=== PATIENT | female | born 1940 | race Caucasian/White ===

== ENCOUNTER 2019-05-23 08:30 | Emergency (ER) | payer MEDICARE, OTHER, SELFPAY ==
[2019-05-23 08:43] VITALS: PULSE 64; RESP 18; O2SAT 95; BMI 24.9
--- NOTE | 2019-05-23 08:50 | CTR_ITS ---
PROCEDURE INFORMATION: Exam: CT Cervical Spine Without Contrast Exam date and time: 05/23/2019 9:24 AM Age: 78 years old Clinical indication: Neck pain TECHNIQUE: Imaging protocol: Computed tomography images of the cervical spine without contrast. Total DLP: 461.14 mGy-cm Radiation optimization: All CT scans at this facility use at least one of these dose optimization techniques: automated exposure control; mA and/or kV adjustment per patient size (includes targeted exams where dose is matched to clinical indication); or iterative reconstruction. COMPARISON: CR Cervical Spine AP/Lat* [id number] 12/29/2016 10:29 AM FINDINGS: Vertebrae: No acute fracture. Normal alignment. Discs/Spinal canal/Neural foramina: There are multilevel degenerative changes including disc space narrowing, uncovertebral joint arthropathy, and hypertrophic spur formation. Soft tissues: Unremarkable. Lungs: Lung apices are normal. CT/CT cervical spin wo con* [id number] IMPRESSION: No acute findings are identified. Please see above report for incidental findings. Radiation Dose CTDIVOL = (mGy): DLP = 461.14 (mGy-cm)
--- NOTE | 2019-05-23 08:57 | ED_ITS ---
HPI - Neck Pain/Injury General: Chief Complaint: Headache Stated Complaint: head/neck pain Time Seen by Provider: 05/23/19 08:50 Review of Systems General: Reports: 10 or more systems reviewed and unremarkable except in HPI and below PFSH ED PFSH: Medical History COPD (chronic obstructive pulmonary disease) Hypertension Hypothyroidism Vitamin D deficiency Surgical History History of cholecystectomy History of hysterectomy Family History Daughter Lupus Social History Smoking and tobacco status: never smoked Alcohol intake: never Marital status: Physical Exam Narrative: EXAM NARRATIVE: Well kempt Const: COMMON NORMALS: no apparent distress, average body habitus, oriented x3, no limitations, alert and well nourished GENERAL APPEARANCE: cooperative and comfortable ORIENTATION/CONSCIOUSNESS: Yes awake, Yes oriented to person, Yes oriented to place and Yes oriented to time HENMT: COMMON NORMALS: normocephalic, external ears normal, EAC's normal, TM's normal bilaterally and external nose normal HEAD & SCALP: normocephalic FACE & SINUS: normal facial exam, sinus tenderness frontal and facial tenderness NOSE: external nose normal EXTERNAL EAR: Yes external ears normal EXTERNAL AUDITORY CANAL: EAC's normal TYMPANIC MEMBRANE: TM's normal bilaterally MOUTH: oral and palatal mucosa normal THROAT: posterior oropharynx normal, tonsils normal and uvula midline Eye: COMMON NORMALS: PERRL, EOMs intact bilaterally, conjunctivae normal, no scleral icterus, no papilledema and normal visual lyons by confrontation GENERAL EYE: normal appearance of both eyes and normal light reflex EYELID: eyelids normal CONJUNCTIVA: Yes conjunctivae normal PUPIL: Yes PERRL EOM: Yes EOM abnormal DIRECT OPHTHALMOSCOPY: Yes normal light reflex and Yes no papilledema Neck/C-Spine: COMMON NORMALS: full ROM, no meningeal signs, no JVD and thyroid normal GENERAL: Yes normal visual inspection THYROID: thyroid normal CERVICAL SPINE: Yes cervical ROM normal Lymph: LYMPHATIC: no lymphadenopathy noted Chest: COMMONS NORMALS: inspection of chest normal and palpation of chest normal Resp: COMMON NORMALS: normal respiratory effort, no retractions, no use of accessory muscles and clear to auscultation bilaterally AUSCULTATION: clear to auscultation bilaterally Cardio: COMMON NORMALS: no JVD, regular rate, regular rhythm, S1 normal heart sound, S2 normal heart sound, no gallops, no clicks, no murmurs, no rub and peripheral pulses 2+ throughout RATE: regular rate RHYTHM: regular rhythm HEART SOUNDS: S1 normal and S2 normal PERIPHERAL PULSES: pulses 2+ throughout GI: COMMON NORMALS: normal to inspection, nondistended, normoactive bowel sounds and soft to palpation PALPATION: Yes soft : COMMON NORMALS: Yes no CVA tenderness and Yes external appearance normal BLADDER/KIDNEY EXAM: Yes no CVA tenderness Back/Pelvis: COMMON NORMALS: no CVA tenderness, thoracic and lumbar spine normal to inspection, no thoracic nor lumbar tenderness and thoraco-lumbar ROM normal Extremity: COMMON NORMALS: normal to inspection, full ROM, normal capillary refill, no joint enlargement, no clubbing, cyanosis or edema, no calf tenderness and no pedal edema GENERAL: Yes normal exam except as noted Neuro: COMMON NORMALS: oriented x3 SENSORIUM/ORIENTATION: Yes alert, Yes oriented to person, Yes oriented to place and Yes oriented to time MENINGEAL SIGNS: Yes no meningeal signs Psych: COMMON NORMALS: mental status grossly normal, thought process normal, cooperative, affect normal, speech normal and activity/motor behavior normal SPEECH: Yes normal speech THOUGHT PROCESS: normal thought process Skin: COMMON NORMALS: no rashes or lesions noted, no wounds and skin turgor normal GENERAL SKIN EXAM: no rashes or lesions noted and turgor normal Course ED course: Pt assessed and orders placed. Reevaluation(s): Reevaluation #1: Awaiting ct head and cspine Time: 09:48 Time: 10:46 Reevaluation #3: Discussed CT findings and addressed possible POC. PCP for follow up on cervical arthritis. Vital Signs: Vital signs: Vital Signs Pulse Rate 56 L 05/23/19 10:34 Respiratory Rate 17 05/23/19 10:34 Blood Pressure 167/64 05/23/19 10:34 Pulse Oximetry 95 05/23/19 10:34 MDM - Neck Pain/Injury Imaging Data^: CT Head: Radiologist's impression: CT/CT head wo con* [id number] IMPRESSION: No acute intracranial findings identified. Please refer to incidental findings in body of report FINDINGS: Brain: There are chronic lacunar infarcts. Ventricles: Normal. No ventriculomegaly. Bones/joints: Unremarkable. No acute fracture. Sinuses: There is mild sinus disease. 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 Mastoid air cells: Visualized mastoid air cells are well aerated. Soft tissues: Unremarkable. Vasculature: There is moderate intracranial vascular calcification. FINDINGS: Vertebrae: No acute fracture. Normal alignment. Discs/Spinal canal/Neural foramina: There are multilevel degenerative changes including disc space narrowing, uncovertebral joint arthropathy, and hypertrophic spur formation. Soft tissues: Unremarkable. Lungs: Lung apices are normal. CT/CT cervical spin wo con* [id number] IMPRESSION: No acute findings are identified. Please see above report for incidental findings. Discharge Plan Discharge Patient Disposition: Home, Self-Care Clinical Impression: Cervical arthritis, Tension headache Condition: Stable Prescriptions: No Action betamethasone acet,sod phos [Celestone Soluspan] 6 mg/mL suspension 6 mg IM ONCE Qty: 1 RF: 0 dexamethasone sodium phosphate 4 mg/mL solution 4 mg IM ONCE Qty: 1 RF: 0 fluticasone propion-salmeterol [Advair Diskus] 250-50 mcg/dose blister with device 1 inh INHALATION Q12H RF: 0 losartan 50 mg tablet 50 mg PO BID RF: 0 levothyroxine 88 mcg tablet 88 mcg PO DAILY RF: 0 albuterol sulfate [ProAir HFA] 90 mcg/actuation HFA aerosol inhaler 2 puff INHALATION QID RF: 0 potassium gluconate 595 mg (99 mg) tablet 595 mg PO DAILY RF: 0 cholecalciferol (vitamin D3) 4,000 unit capsule 4,000 unit PO .1ST AND 15TH RF: 0 tizanidine 4 mg capsule 4 mg PO TID PRN (Reason: muscle spasticity) Qty: 60 RF: 0 Referrals: Yu Mcnulty, CANDY CUTTER MACHINE-C [Primary Care Provider] - Discharge Diet: Usual diet Discharge Activity: Increase activity as tolerated Activity Restrictions/Additional Instructions: Follow up with PCP; referral to Dr. Castillo or pain management may be necessary at this time. Coding Level of Care Code ED Tank Wagon Operator for Chg Fwd Exam Comprehensive
[2019-05-23] MEDS: ketorolac 30 mg/mL INJ IM (09:07)
[2019-05-23] MEDS: orphenadrine 30 mg/mL Inj 2 mL 60 MG IM (09:07)
[2019-05-23 09:11] VITALS: BP 182/80; PULSE 60; RESP 17; O2SAT 96
--- NOTE | 2019-05-23 09:14 | CTR_ITS ---
PROCEDURE INFORMATION: Exam: CT Head Without Contrast Exam date and time: 05/23/2019 9:27 AM Age: 78 years old Clinical indication: Pain; Headache TECHNIQUE: Imaging protocol: Computed tomography of the head without contrast. Total DLP: 824.23 mGy-cm Radiation optimization: All CT scans at this facility use at least one of these dose optimization techniques: automated exposure control; mA and/or kV adjustment per patient size (includes targeted exams where dose is matched to clinical indication); or iterative reconstruction. COMPARISON: CT head wo con* [id number] 12/29/2016 10:27 AM FINDINGS: Brain: There are chronic lacunar infarcts. Ventricles: Normal. No ventriculomegaly. Bones/joints: Unremarkable. No acute fracture. Sinuses: There is mild sinus disease. 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 Mastoid air cells: Visualized mastoid air cells are well aerated. Soft tissues: Unremarkable. Vasculature: There is moderate intracranial vascular calcification. CT/CT head wo con* [id number] IMPRESSION: No acute intracranial findings identified. Please refer to incidental findings in body of report. Radiation Dose CTDIVOL = (mGy): DLP = 824.23 (mGy-cm)
--- NOTE | 2019-05-23 09:23 | PC.NURSE ---
Pt to CT
--- NOTE | 2019-05-23 09:37 | PC.NURSE ---
Pt back from CT
[2019-05-23 09:38] VITALS: BP 175/83; PULSE 56; RESP 18; O2SAT 95
[2019-05-23 10:34] VITALS: BP 167/64; PULSE 56; RESP 17; O2SAT 95
[2019-05-23 11:00] VITALS: BP 163/82; PULSE 55; RESP 18; O2SAT 95
== END 2019-05-23 11:00 | disposition home or self-care (01) ==
PROVIDERS: Emergency Provider Nurse Practitioner Family; Family Provider Nurse Practitioner; PCP Nurse Practitioner
DX: G44.209 Tension-type headache, unspecified, not intractable (principal); M47.812 Spondylosis without myelopathy or radiculopathy, cervical region; J44.9 Chronic obstructive pulmonary disease, unspecified; I10 Essential (primary) hypertension; E03.9 Hypothyroidism, unspecified
CPT/HCPCS: 70450; 72125; 96372; 99281; 99283; J1885; J2360

== ENCOUNTER 2019-06-30 01:11 | Observation (INO) | payer MEDICARE, OTHER, SELFPAY ==
[2019-06-30] VITALS (13 sets, daily range): BP systolic 110–159; BP diastolic 48–96; PULSE 16–113; RESP 16–60; TEMP 36.7–37.3; O2SAT 93–97; BMI 25.2
--- NOTE | 2019-06-30 01:19 | XR_ITS ---
WS: [id number] CHEST XRAY TECHNIQUE: Portable chest. CLINICAL INFORMATION: cp COMPARISON: June 12, 2018 FINDINGS: Heart: Normal cardiac silhouette. Lungs: Chronic emphysematous changes. No acute pulmonary infiltrates. Calcific granuloma left lower l obe. Bones: Normal visualized bony structures. XR/XR chest 1V portable [id number] IMPRESSION: No acute chest findings
--- NOTE | 2019-06-30 01:22 | W.ED.CHESTPA ---
HPI - Chest Pain General: Chief Complaint: Chest Pain Stated Complaint: high bp Time Seen by Provider: 06/30/19 01:13 Source: patient Mode of arrival: ambulatory Limitations: no limitations History of Present Illness: HPI narrative: Patient is a 78-year-old female who has a history of high blood pressure states she started having high blood pressure yesterday. She saw her PCP for this and was given clonidine and improved. She states she has had chest pain with her high blood pressure. She states her blood pressure increased to 190s again tonight and started having pain in her chest that is mild in nature. States pain is 1 out of 10. She has had a slight headache as well. Denies any worsening or improving factors. complaint: chest pain Onset (ago): day(s) Timing of current episode: episodic Onset: during rest Pain location: lateral Pain radiation: none Severity: mild Relieving factors: nothing Exacerbating factors: nothing Associated symptoms: Deny abdominal pain, dyspnea, fever(s), nausea or vomiting Review of Systems Const: Denies: fever, chills, body aches or change in appetite Eyes: Denies: blurry vision or eye discomfort ENMT: Denies: throat pain or dental pain Card: Reports: chest pain Resp: Denies: shortness of breath GI: Denies: abdominal pain, nausea, vomiting or diarrhea : Denies: painful urination Musc: Denies: neck pain or back pain Skin/Breast: Denies: rash Neuro: Denies: headache Psych: Denies: depression Mark/Lymph: Denies: easy bruising All/Imm: Denies: hives PFSH ED PFSH: Medical History COPD (chronic obstructive pulmonary disease) Hypertension Hypothyroidism Vitamin D deficiency Surgical History History of cholecystectomy History of hysterectomy Family History Daughter Lupus Social History Smoking and tobacco status: never smoked Second hand smoke exposure: No Alcohol intake: never Lives independently: Yes Household members: spouse Marital status: Current occupational status: employed Current occupation: [employer] History of recent travel: No Current gender identity: Female Physical Exam Const: COMMON NORMALS: no apparent distress, oriented x3 and healthy appearing HENMT: COMMON NORMALS: normocephalic and head/scalp atraumatic HEAD & SCALP: normocephalic and atraumatic Eye: COMMON NORMALS: PERRL and EOMs intact bilaterally PUPIL: Yes PERRL Neck/C-Spine: COMMON NORMALS: full ROM and supple Chest: COMMONS NORMALS: inspection of chest normal and palpation of chest normal Resp: COMMON NORMALS: normal respiratory effort, no retractions, no use of accessory muscles and clear to auscultation bilaterally AUSCULTATION: clear to auscultation bilaterally Cardio: COMMON NORMALS: regular rate, regular rhythm and no murmurs RATE: regular rate RHYTHM: regular rhythm GI: COMMON NORMALS: normal to inspection, nondistended, normoactive bowel sounds, soft to palpation, non-tender and no masses PALPATION: Yes soft Extremity: COMMON NORMALS: normal to inspection and full ROM Neuro: COMMON NORMALS: oriented x3, moves all extremities and no focal motor deficits Psych: COMMON NORMALS: mental status grossly normal, thought process normal and cooperative THOUGHT PROCESS: normal thought process Skin: COMMON NORMALS: no rashes or lesions noted and no wounds GENERAL SKIN EXAM: no rashes or lesions noted Course Vital Signs: Vital signs: Vital Signs Temperature 98.4 F 06/30/19 01:16 Pulse Rate 113 H 06/30/19 01:16 Respiratory Rate 22 H 06/30/19 01:16 Blood Pressure 159/96 06/30/19 01:16 Pulse Oximetry 94 06/30/19 01:16 MDM - Chest Pain MDM Narrative: Medical decision making narrative: Patient presents here with new onset A. fib. Patient also has high blood pressure and some chest pain. She has no signs of coronary cause for her pain. Patient's heart rates improved here after Cardizem. I spoke to hospitalist will admit for atrial fibrillation. Lab Data: Labs: Lab Results 06/30/19 06/30/19 06/30/19 Range/Units 01:24 01:24 01:24 WBC 5.1 (4.0-10.0) 10^3/ uL RBC 4.46 (4.1-5.3) 10^6/u L Hgb 12.8 (11.5-15.3) g/dL Hct 39.8 (37.0-47.0) % MCV 89.2 (81-99) fL MCH 28.7 (28.0-34.0) pg MCHC 32.2 (30.0-36.0) g/dL RDW 12.8 (12.1-15.1) % Plt Count 206 (130-400) 10^3/c mm MPV 9.8 (7.4-10.4) fL Neut % (Auto) 54.3 % Lymph % (Auto) 34.3 % [place] % (Auto) 8.6 % Eos % (Auto) 2.2 % Baso % (Auto) 0.4 % Neut # (Auto) 2.8 (1.8-7.7) 10^3/u L Lymph # (Auto) 1.8 (0.8-4.8) 10^3/u L [place] # (Auto) 0.4 (0.2-0.9) 10^3/u L Eos # (Auto) 0.1 (0.0-0.8) 10^3/u L Baso # (Auto) 0.0 (0.0-0.1) 10^3/u L Nucleated RBC % (a uto) 0 % Nucleated RBCs # 0.0 /100WBC Sodium 139 (136-145) mmol/L Potassium 4.0 (3.5-5.1) mmol/L Chloride 103 (98-107) mmol/L Carbon Dioxide 22 (22-29) mmol/L Anion Gap 18.0 (5-19) BUN 11 (8-23) mg/dL Creatinine 1.0 H (0.5-0.9) mg/dL Glucose 142 H (65-115) mg/dL Calculated Osmolal ity 286 (285-295) mOsm/k g Calcium 10.2 (8.5-10.5) mg/dL Total Bilirubin 0.4 (0.15-1.2) mg/dL AST 16 (0-32) U/L ALT 13 (0-33) U/L Alkaline Phosphata se 66 (35-105) IU/L Troponin T Baselin e 10 (0-10) ng/mL Total Protein 7.2 (6.6-8.7) g/dL Albumin 4.3 (3.5-5.2) g/dL Globulin 2.9 (1.3-4.6) g/dL EKG Data^: EKG 1: Attestation: I personally reviewed and interpreted this EKG as follows: EKG interpretation date: 06/30/19 EKG interpretation time: 01:58 Interpretation: afib rvr hr [address] or t wave abnormalities qrs 88 qtc 390 Discharge Plan Discharge Patient Disposition: Admitted As Inpatient Admit Provider: Melinda Marley Clinical Impression: Hypertension Qualifiers: Hypertension type: unspecified Qualified Code(s): I10 - Essential (primary) hypertension Atrial fibrillation Qualifiers: Atrial fibrillation type: unspecified Qualified Code(s): I48.91 - Unspecified atrial fibrillation Condition: Stable Referrals: Yu Mcnulty, IVF EMBRYOLOGIST-C [Primary Care Provider] - Coding Level of Care Code ED Record Press Supervisor for Chg Fwd Exam Comprehensive
--- NOTE | 2019-06-30 01:24 | CTR_ITS ---
PROCEDURE INFORMATION: Exam: CT Head Without Contrast Exam date and time: 06/30/2019 1:25 AM Age: 78 years old Clinical indication: Pain; Other: Elevated BP; Headache not specified; Additional info: SMALL TECHNIQUE: Imaging protocol: Computed tomography of the head without contrast. Total DLP: 820.98 mGy-cm Radiation optimization: All CT scans at this facility use at least one of these dose optimization techniques: automated exposure control; mA and/or kV adjustment per patient size (includes targeted exams where dose is matched to clinical indication); or iterative reconstruction. COMPARISON: CT head wo con* [id number] 2019-05-23 09:43 FINDINGS: Brain: Diffuse mild cerebral age related volume loss. Mild patchy low attenuation in the white matter compatible with mild chronic small vessel ischemic disease. No midline shift, mass, fluid collection, or evidence of hemorrhage. Ventricles: Ventricular enlargement proportional to volume loss. Bones/joints: Unremarkable. No acute fracture. Sinuses: Visualized sinuses are unremarkable. No fluid levels. Mastoid air cells: Visualized mastoid air cells are well aerated. Soft tissues: Unremarkable. CT/CT head wo con* [id number] IMPRESSION: Mild involutional changes, no acute intracranial abnormality. Radiation Dose CTDIVOL = (mGy): DLP = 820.98 (mGy-cm)
[2019-06-30 01:31] LABS: Basophils % 0.4 %; Eosinophils # 0.1 10^3/uL (0.0-0.8); Eosinophils % 2.2 %; Hematocrit 39.8 % (37.0-47.0); Hemoglobin 12.8 g/dL (11.5-15.3); Lymphocytes # 1.8 10^3/uL (0.8-4.8); Lymphocytes % 34.3 %; Mean Corpuscular HGB Conc 32.2 g/dL (30.0-36.0); Mean Corpuscular Hemoglobin 28.7 pg (28.0-34.0); Mean Corpuscular Volume 89.2 fL (81-99); Mean Platelet Volume 9.8 fL (7.4-10.4); Monocytes # 0.4 10^3/uL (0.2-0.9); Monocytes % 8.6 %; Neutrophils # 2.8 10^3/uL (1.8-7.7); Neutrophils % 54.3 %; Nucleated Red Blood Cells % 0 %; Platelet Count 206 10^3/cmm (130-400); Red Blood Count 4.46 10^6/uL (4.1-5.3); Red Cell Distribution Width 12.8 % (12.1-15.1); White Blood Count 5.1 10^3/uL (4.0-10.0)
[2019-06-30 01:47] LABS: Alanine Aminotransferase 13 U/L (0-33); Albumin Level 4.3 g/dL (3.5-5.2); Alkaline Phosphatase 66 IU/L (35-105); Aspartate Amino Transferase 16 U/L (0-32); Blood Urea Nitrogen 11 mg/dL (8-23); Calcium 10.2 mg/dL (8.5-10.5); Carbon Dioxide 22 mmol/L (22-29); Chloride 103 mmol/L (98-107); Globulin 2.9 g/dL (1.3-4.6); Glucose 142 mg/dL (65-115); Osmolality Calculated 286 mOsm/kg (285-295); Sodium 139 mmol/L (136-145); Total Bilirubin 0.4 mg/dL (0.15-1.2); Total Protein 7.2 g/dL (6.6-8.7); Troponin(5th) Baseline 10 ng/mL (0-10)
--- NOTE | 2019-06-30 02:18 | P.HP_ITS ---
Providers/Chief Complaint Primary Care Provider: Yu Mcnulty, RYLIE-C Chief Complaint: high bp History of Present Illness Anitha Marie is a 78 year old female who carries diagnoses of asthma, hypothyroidism, hypertension came in with chief complaint of palpitations. Patient is stating that for last couple of months she has been having palpitations mostly when she lays flat in bed at night, she has seen Dr. Case for the similar complaint who prescribed her atenolol in the past. Today she woke up and started experiencing some discomfort in her chest, she was feeling tired and lethargic, she checked her blood pressure it was 195mmhg at home she went to [facility], she was given clonidine that brought her pressure down to 120, she went home and then around evening she started experiencing chest heaviness, palpitations, palpitations were consistent, this time hyper pressure was 175, mild chest discomfort 1/10, she did not experience shortness of breath, nausea or vomiting. No recent sick contacts or traveling. She lives with her and daughter. Non-smoker, nonalcoholic. She drinks 1 to 2 cups of coff ee in the morning. Few weeks ago she fell in her backyard while taking steps, she has been seeing a chiropractor for neck pain, she was given tizanidine and Celebrex. She has not experienced any back pain but reports numbness of right thigh area. No previous history of stroke, [place], coronary disease or diabetes. Diagnostics in ER revealed hypertension 160/60, heart rate 113, A. fib RVR, saturating well on room air After getting Cardizem bolus 50 mg IV heart rate came down to 60s and blood pres sure 110/70, she was asymptomatic by the time I evaluated her Review of Systems Const: Denies: fever or chills Eyes: Denies: change in vision ENMT: Denies: throat pain Card: Reports: chest pain, palpitations and irregular heart rhythm; Denies: edema, swelling of feet/ankles, syncope, pre-syncope, shortness of breath on exertion or shortness of breath when lying down Resp: Denies: shortness of breath GI: Denies: abdominal pain, nausea, vomiting or coffee grounds in vomit : Denies: flank pain, difficulty urinating or urinary frequency Musc: Reports: neck pain; Denies: back pain Skin/Breast: Denies: rash or itching Neuro: Denies: headache Psych: Denies: anxiety Endo: Denies: excessive urination Mark/Lymph: Denies: easy bruising All/Imm: Denies: hives Medications/Allergies Allergies Allergy/AdvReac Type Severity Reaction Status Date / Time Sulfa (Sulfonamide Allergy UNK Verified 06/29/19 10:52 Antibiotics) PFSH Acute PFSH: Medical History (Updated 06/30/19 @ 03:04 by Melinda Marley MD) Arthritis Asthma Hypertension Hypothyroidism Vitamin D deficiency Surgical History History of cholecystectomy History of hysterectomy Family History (Updated 06/30/19 @ 03:04 by Melinda Marley MD) Daughter Lupus Mother Bleeding disorder Mother at age 43 because of intracranial bleed Social History Smoking and tobacco status: never smoked Second hand smoke exposure: No Alcohol intake: never Lives independently: Yes Household members: spouse Marital status: Current occupational status: employed Current occupation: [employer] History of recent travel: No Current gender identity: Female Vitals/I&O/Wt Last Vital Signs Temp 98.4 F 06/30/19 01:16 Pulse 113 H 06/30/19 01:16 Resp 22 H 06/30/19 01:16 BP 159/96 06/30/19 01:16 Pulse Ox 94 06/30/19 01:16 Weight last 48 hrs Weight 66.678 kg Physical Exam Narrative: EXAM NARRATIVE: Very pleasant female sitting comfortably in her bed Heart rate 60, Systolic blood pressure 120 S1, S2 variable, telemetry showing A. fib no active signs of heart failure Lungs clear to auscultation Abdomen soft, nontender, nondistended bowels are present Neurologically nonfocal exam Good motor strength of upper and lower extremities, no facial asymmetry, cranial nerves II to XII intact, reflexes equivocal Appropriate mood and affect EOMI, PERRLA No sign of ischemia gangrene or ulcer Data : 06/30/19 01:24 06/30/19 01:24 A&P Assessment and plan (1) Hypothyroidism: Status: Acute (2) Atrial fibrillation: Status: Acute Qualifiers: Atrial fibrillation type: unspecified Qualified Code(s): I48.91 - Unspecified atrial fibrillation (3) Muscle spasm: Status: Acute (4) Hypertension: Status: Acute Qualifiers: Hypertension type: unspecified Qualified Code(s): I10 - Essential (primary) hypertension (5) Neck pain: Status: Acute Additional A&P Information New onset A. fib Florian Vascor is 4 Has bled score 2 Check TSH, she takes levothyroxine for hypothyroidism No active chest pain, no history of coronary artery disease Eliquis 5 mg twice a day, metoprolol AV aiyana blocking agent 25 mg twice a day Echo in the morning Hypertensive urgency She has been only taking losartan for her hypertension although it has stayed about 170 for at least 1 to 2 weeks, Currently her systolic blood pressure is 110 after getting Cardizem bolus She has received clonidine in the clinic today She might need 2-3 anti-hypertensive agents at the time of discharge including a diuretic Neck pain after a fall Her fall was mechanical No loss of consciousness CT head negative for any acute pathology, She has been feeling numbness of left thigh area without any weakness, no incontinence or respiratory distress CT spine did not show acute pathological findings done on 05/22 I would discontinue Celebrex and continue tizanidine Full code Cardiac diet DVT prophylaxis: Not indicated currently she is getting Eliquis Attestations Medical Necessity Statement*: Anticipating discharge in less than 48 hours, new onset A. fib RVR needs echo in the morning currently rate controlled Time Spent in Patient Care: 40 Coding Level of Care Code Acute Coal Pulverizer Operator for Chg Fwd Diagnoses Hypothyroidism E03.9 Atrial fibrillation I48.91 Atrial fibrillation type: unspecified Muscle spasm M62.838 Hypertension I10 Hypertension type: unspecified Neck pain M54.2
[2019-06-30 04:25] LABS: Troponin 5 2HR 11.18 ng/mL (0-10); Troponin 5 2HR Delta 1.18 ABS# (0-10)
[2019-06-30 04:30] LABS: Thyroid Stimulating Hormone 0.48 uIU/mL (0.27-4.20)
--- NOTE | 2019-06-30 07:00 | USCV_ITS ---
Anitha Marie Age: 78 Gender: F : 1940 Exam Date: 06/30/2019 06:19 Ordering Phys: Melinda Marley MD Technologist: Li Francisco [place]am [place] [facility] [place] Indication: NEW ONSET AFIB BP: 138 / 81 HR: 58 Rhythm: Sinus Technical Quality: Adequate MEASUREMENTS (Male / Female) Normal Values 2D ECHO LV Diastolic Diameter PLAX 3.9 cm 4.2 - 5.9 / 3.9 - 5.3 cm LV Systolic Diameter PLAX 2.2 cm LV Chamber Size 3.3 cm IVS Diastolic Thickness 1.2 cm 0.6 - 1.0 / 0.6 - 0.9 cm IVS Systolic Thickness 1.8 cm LVPW Diastolic Thickness 1.4 cm 0.6 - 1.0 / 0.6 - 0.9 cm LVPW Systolic Thickness 1.5 cm RV Chamber Size 2.5 cm LVOT Diameter 2.0 cm LV Ejection Fraction 2D Teich 74.0 % LV Ejection Fraction MOD 2C 32.8 % LV Ejection Fraction 2C AL 34.5 % LA Diameter 5.0 cm LA Width 3.1 cm LA Height 5.6 cm RA Width 3.2 cm RA Height 4.8 cm Aorta at Sinotubular Diameter 2.8 cm M-MODE LV Diastolic Diameter MM 5.0 cm 4.2 - 5.9 / 3.9 - 5.3 cm LV Systolic Diameter MM 2.9 cm LV Ejection Fraction MM Teich 74.2 % IVS Diastolic Thickness MM 1.1 cm 0.6 - 1.0 / 0.6 - 0.9 cm IVS Systolic Thickness MM 1.7 cm LVPW Diastolic Thickness MM 1.4 cm 0.6 - 1.0 / 0.6 - 0.9 cm LVPW Systolic Thickness MM 1.8 cm RV Diastolic Diameter MM 1.1 cm Aortic Annulus Diameter 2.9 cm LA Ao Ratio MM 1.7 MV E Point Septal Separation 0.6 cm DOPPLER AV Peak Velocity 149.0 cm/s LVOT Peak Velocity 101.0 cm/s AV Area Cont Eq vti 2.2 cm squared AV Area Cont Eq pk 2.1 cm squared MV Area PHT 3.9 cm squared Mitral E to A Ratio 1.6 MV E' Velocity 11.0 cm/s Mitral E to MV E' Ratio 7.7 Mitral E to LV E' Lateral Ratio 8.6 Mitral E to LV E' Septal Ratio 6.9 TR Peak Velocity 313.2 cm/s TR Peak Gradient 39.2 mmHg TR Mean Velocity 225.6 cm/s TR Mean Gradient 23.2 mmHg TR Velocity Time Integral 107.2 cm TV Peak E Velocity 70.0 cm/s Right Atrial Pressure 3.0 mmHg Pulmonary Artery Systolic Pressu 42.2 mmHg PV Peak Velocity 38.0 cm/s RV Acceleration Time 0.1 s RV Ejection Time 0.3 s RV AcT/ET 0.5 FINDINGS Left Ventricle Normal left ventricular cavity size. Normal left ventricular wall thickness. Normal left ventricular systolic function. No regional wall motion abnormalities. Grade I/IV diastolic dysfunction (abnormal relaxation filling pattern), normal to mildly elevated filling pressures. Left ventricular ejection fraction is estimated at 55 %. Right Ventricle Normal right ventricular size and systolic function. Mild pulmonary hypertension, RVSP 42.2 mmHg. Right Atrium The right atrium is normal in size. Left Atrium Mildly increased left atrial size. Mitral Valve Structurally normal mitral valve. Moderate mitral valve regurgitation. Aortic Valve Structurally normal aortic valve without significant sclerosis or stenosis. There is no aortic regurgitation. Tricuspid Valve Structurally normal tricuspid valve. [id number] tricuspid valve regurgitation. Pulmonic Valve Pulmonic valve not well visualized. Pericardium Normal pericardium without effusion. Aorta Normal ascending aorta dimension. CONCLUSIONS Normal left ventricular cavity size. Normal left ventricular wall thickness. Normal left ventricular systolic function. No regional wall motion abnormalities. Grade I/IV diastolic dysfunction (abnormal relaxation filling pattern), normal to mildly elevated filling pressures. Left ventricular ejection fraction is estimated at 55 %. Normal right ventricular size and systolic function. Mild pulmonary hypertension, RVSP 42.2 mmHg. Mildly increased left atrial size. Structurally normal mitral valve. Moderate mitral valve regurgitation. Dr. Francis Rogers MD (Electronically Signed) Final Date: 30 June 2019 13:01 S
--- NOTE | 2019-06-30 07:19 | ECG_ITS ---
Measurements Intervals Scott Rate: 77 P: SC: 0 QRS: 50 QRSD: 91 T: 73 QT: 356 QTc: 403 ATRIAL FIBRILLATION ABNORMAL RHYTHM ECG No previous ECG available for comparison Electronically Signed On 06-30-2019 18:10:47 CDT by Surjit Stone M.D. [email or web address]
[2019-06-30 07:53] LABS: Troponin 5 6HR 11.09 ng/mL (0-10); Troponin 5 6HR Delta 1.09 ng/L (0-12)
[2019-06-30] MEDS: levothyroxine 88 mcg Tablet PO (08:32)
[2019-06-30] MEDS: metoprolol tartrate 25 mg Tablet PO ×2 (08:32→17:41)
[2019-06-30] MEDS: losartan 50 mg Tablet PO ×2 (08:32→17:41)
[2019-06-30] MEDS: apixaban 5 mg Tablet PO ×2 (08:33→17:41)
--- NOTE | 2019-06-30 10:06 | PC.CHAP ---
Pastoral Care Encounter/Spiritual Assessment Type of Contact [] Declined tavern keeper visit [] Patient/Family/Request visit [] Outpatient visit [] Follow-up visit [] Physician referral [] Code/Alert [x] Routine visit [] Staff referral [] Actively dying [] Patient sleeping [] Family support [] [] Out of room [] Palliative care [] [] Receiving care in room [] Pre-surgical visit [] Trauma [] Long length of stay [] ICU visit [] Other: Relational/Emotional Strength [] Patient feels connected with others/family/visitors/staff [] Distress [] Loneliness/isolation [] Abandonment Spirituality of Patient [] Person of Jessa [] Attends Jainism of their Jessa [] Believes in Prayer [] Reads Bible or Rastafari materials [] There are Spiritual issues to be addressed Methodologist Interventions [x] Prayer [] Active listening [] Non-anxious presence [] Spiritual/emotional support [] Crisis/trauma care [] Spiritual counseling [] Bereavement support [] Provided bereavement packet [] Provided Bible/devotional materials [] Provided toy/stuffed animal, coloring book to patient or family member [] Provided Communion [] Anointing/[place] [] Salvation [x] Completed spiritual assessment [] Other: Impact on Illness or Injury [] Angry [] Fearful [] Anxious [] Often cries [] Exhaustion [] Unable to work [] Unable to attend restorationist [] Unable to walk/stand [] Unable to read [] Unable to drive [] Unable to eat/drink [] Unable to sleep [] Unable to be with family [] Patient intubated [] Other: Summary Patient resting Time spent with patient 5 min
--- NOTE | 2019-06-30 10:16 | P.PN_ITS ---
Subjective Subjective: Interval history: History and physical reviewed. Patient reports significant palpitations, and chest pressure, associated with her blood pressure being up. She reports shortness of breath as well. She denies any of this currently and feels much better. Medications: Reviewed: Yes Vitals/I&O/Wt Last Vital Signs Temp 98.6 F 06/30/19 08:00 Pulse 57 L 06/30/19 09:26 Resp 16 06/30/19 09:26 BP 147/72 06/30/19 08:32 Pulse Ox 96 06/30/19 09:26 06/29/19 06/30/19 06/30/19 22:59 06:59 14:59 Intake Total 0 / 0 120 / 120 Output Total 0 / 0 Balance 0 / 0 120 / 120 Weight last 48 hrs Weight 66.678 kg Physical Exam Narrative: EXAM NARRATIVE: General exam is no apparent distress Cardiovascular regular rate and rhythm without murmur Lungs clear abdomen is soft with positive bowel sounds Extremities no cyanosis clubbing or edema Data : 06/30/19 01:24 06/30/19 01:24 A&P Assessment and plan (1) Chest pain: Associated with palpitations, atrial fibrillation with rapid ventricular rate. Previously having some neck pain. Chest discomfort has resolved Await for nuclear stress test tomorrow Await echocardiogram Status: Acute (2) Atrial fibrillation: With rapid ventricular rate on admission Eliquis started Metoprolol initiated. Patient has converted to sinus rhythm Status: Acute Qualifiers: Atrial fibrillation type: unspecified Qualified Code(s): I48.91 - Unspecified atrial fibrillation (3) Hypertension: Markedly elevated blood pressure. Now improved Losartan increased Metoprolol 25 mg twice daily added last night for atrial fibrillation with rapid ventricular rate Status: Acute Qualifiers: Hypertension type: unspecified Qualified Code(s): I10 - Essential (primary) hypertension Additional A&P Information History of neck pain, on muscle relaxer as needed Hypothyroidism, TSH normal Past history of COPD Attestations Medical Necessity Statement*: Continue observation. Likely discharge tomorrow if nuclear stress test is negative. 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
--- NOTE | 2019-06-30 10:17 | ECG_ITS ---
NAME OF STUDY: LEXISCAN SESTAMIBI STRESS TEST INDICATION: Chest Pain, PROCEDURE: At the baseline, the EKG revealed normal sinus rhythm with a poor R wave progression. Some nonspecific T wave changes. The baseline blood pressure was 149/67 mm Hg with a heart rate of 62 beats/min. Lexiscan was infused over a period of 20 seconds. A total of 0.4 milligrams of Lexiscan was infused. The stress phase was continued for a total of 5 minutes. Heart rate at the end of the stress phase was 69 with a blood pressure was not taken. The EKG at the peak infusion revealed some nonspecific ST changes.. Sestamibi was injected 20 seconds after the Lexiscan infusion. Blood pressure at the end of the recovery phase was was not taken with a heart rate of 93 per minute. CONCLUSION: 1. Nonspecific EKG changes with the LexiScan infusion 2. No LexiScan induced chest pain or cardiac arrhythmia 3. Normal blood pressure and heart rate response 4. Sestamibi/sestamibi perfusion scan pending; see separate report. Electronically Signed On 07-01-2019 12:57:35 CDT by Surjit Stone M.D. [email or web address]
[2019-06-30 10:58] LABS: Magnesium 2.1 mg/dL (1.7-2.3)
--- NOTE | 2019-06-30 20:27 | PC.NURSE ---
Patient ambulating in hernández with another patient. Just checking things out....I do have a little bit of heart burn though...I usually take Prevacid everyday and I haven't since I've been in here. Dr. Marley notified with new order received for GI Cocktail. Will monitor.
[2019-06-30] MEDS: lidocaine 2% viscous 15 ML, aluminum-mag hydrox-simethicon 30 ML, sucralfate oral liq 1 GM PO (22:00)
[2019-07-01] VITALS (8 sets, daily range): BP systolic 147–163; BP diastolic 67–73; PULSE 55–89; RESP 16–20; TEMP 36–37.2; O2SAT 94–96
[2019-07-01 05:02] LABS: Basophils % 0.3 %; Eosinophils # 0.2 10^3/uL (0.0-0.8); Eosinophils % 4.3 %; Hematocrit 36.9 % (37.0-47.0); Hemoglobin 11.9 g/dL (11.5-15.3); Lymphocytes # 1.6 10^3/uL (0.8-4.8); Lymphocytes % 39.8 %; Mean Corpuscular HGB Conc 32.2 g/dL (30.0-36.0); Mean Corpuscular Hemoglobin 29.2 pg (28.0-34.0); Mean Corpuscular Volume 90.4 fL (81-99); Mean Platelet Volume 10.1 fL (7.4-10.4); Monocytes # 0.4 10^3/uL (0.2-0.9); Monocytes % 10.5 %; Neutrophils # 1.8 10^3/uL (1.8-7.7); Neutrophils % 44.8 %; Nucleated Red Blood Cells % 0 %; Platelet Count 190 10^3/cmm (130-400); Red Blood Count 4.08 10^6/uL (4.1-5.3); Red Cell Distribution Width 12.8 % (12.1-15.1); White Blood Count 3.9 10^3/uL (4.0-10.0)
[2019-07-01 05:27] LABS: Anion Gap 13.2 (5-19); Blood Urea Nitrogen 11 mg/dL (8-23); Calcium 9.2 mg/dL (8.5-10.5); Carbon Dioxide 26 mmol/L (22-29); Chloride 107 mmol/L (98-107); Glucose 110 mg/dL (65-115); Osmolality Calculated 291 mOsm/kg (285-295); Potassium 4.2 mmol/L (3.5-5.1); Sodium 142 mmol/L (136-145)
--- NOTE | 2019-07-01 07:00 | NMCV_ITS ---
NM lela perf SPECT r/s* [id number] Anitha Marie Age: 78 Gender: F : 1940 Exam Date: 07/01/2019 07:35 Ordering Phys: Gabe Burger MD Technologist: TAMRA Portillo Exam Location: [facility] Indications: HTN STRESS TEST Please see separate stress test report in [facility] for full findings IMAGE PROTOCOL Rest/Stress 1 Lexiscan Day Radiopharmaceutical Dose (mCi) Administration Site Administered by Rest: Tc-99m 10.9 IV TAMRA Portillo Sestamibi Stress:Tc-99m 32.3 IV TAMRA Portillo Sestamibi Rest: 01-Jul-2019 60 Discovery 630 Stress: 01-Jul-2019 30 Discovery 630 0.4mg Lexiscan. Images obtained in supine and prone position. SPECT RESULTS Technical Quality: Good Raw Data Analysis: Breast attenuation Image Corrections: Patient motion artifact - partial motion correction applied to stress supine Summed Stress Score: 1 Summed Rest Score: 5 Summed Difference Score: 0 PERFUSION FINDINGS Patchy areas of slightly decreased tracer uptake were noted in the inferolateral and apical regions. No significant reversibility was noted in these regions. FUNCTIONAL RESULTS (calculated via Gated SPECT) Stress Image LV EF (%): 89 Stress EDV (mL):44 TID: 0.93 Stress ESV (mL):5 FUNCTIONAL FINDINGS: Segmental wall motion analysis revealing no gross wall motion normalities. IMPRESSIONS 1. Myocardial perfusion may revealing patchy areas of persistent decreased tracer uptake in the inferolateral and apical regions, with no significant reversibility, most likely represent attenuation artifacts. 2. Normal LV ejection fraction of 89%. 3. LV wall motion analysis revealing no gross wall motion normalities. 4. Normal LV volume. No significant coronary ischemia, based on the above findings Dr Surjit Stone MD FACC (Electronically Signed) Final Date: 01 July 2019 12:50 S
[2019-07-01] MEDS: regadenoson 0.4 Mg/5 ml Syringe IVP (08:22)
[2019-07-01] MEDS: losartan 50 mg Tablet PO (09:56)
[2019-07-01] MEDS: levothyroxine 88 mcg Tablet PO (09:57)
[2019-07-01] MEDS: amlodipine 5 mg Tablet PO (09:57)
[2019-07-01] MEDS: apixaban 5 mg Tablet PO (09:57)
[2019-07-01] MEDS: metoprolol tartrate 25 mg Tablet PO (09:57)
--- NOTE | 2019-07-01 12:58 | P.DS_ITS ---
Discharge Providers Date of Admission: 06/30/19 02:16 Date of Discharge: July 01, 2019 Attending Provider at Admission: Melinda Marley MD Attending Provider at Discharge: Gabe Burger MD Primary Care Provider: MELISSA Castillo Diagnoses at Discharge Discharge Diagnosis (1) Chest pain: Status: Acute Problem details: Resolved (2) Atrial fibrillation: Status: Acute Problem details: Converted to sinus rhythm. Eliquis, metoprolol initiated. Qualifiers: Atrial fibrillation type: unspecified Qualified Code(s): I48.91 - Unspecified atrial fibrillation (3) Hypertension: Status: Acute Problem details: Improved control Qualifiers: Hypertension type: unspecified Qualified Code(s): I10 - Essential (primary) hypertension Reason for Visit Reason for Visit: Reason For Visit: high bp Hospital Course Hospital Course: Anitha presented to the hospital with palpitations, chest pressure. She was found to have a markedly elevated blood pressure, atrial fibrillation with rapid ventricular rate. TSH was checked and normal. Troponin not significantly elevated. EKG without any significant ischemic changes. She received some diltiazem in the emergency department. Ultimately her atrial fibrillation was treated with metoprolol. Eliquis was added for anticoagulation. Blood pressure was treated with Norvasc, and increasing her dose of losartan. Echocardiogram was performed demonstrating preserved EF, mild pulmonary hypertension, moderate mitral valve regurgitation. Nuclear stress test was performed which demonstrated no significant reversible ischemia. At time of discharge she was chest discomfort free, in sinus rhythm, with a heart rate of 63 and without any symptoms with ambulation. It was thought she could be discharged home, following up with her primary care provider in 3 to 5 days, cardiology 2 weeks. Risks and benefits of anticoagulation were discussed. Limitations of nuclear stress testing was discussed. Physical Exam Narrative: EXAM NARRATIVE: General exam is no apparent distress Cardiovascular regular rate and rhythm without murmur Lungs clear Abdomen is soft with positive bowel sounds Extremities no cyanosis clubbing or edema Discharge Data Data Completed and Pending: Completed Studies During Hospitalization Category Date Time Status CT head wo con* [id number] Urgent Cat Scan 06/30/19 01:24 Completed Sestamibi Stress Test Request Routi ne Exams 06/30/19 10:17 Ordered XR chest 1V adrián ble [id number] Stat Exams 06/30/19 01:19 Completed NM lela perf SPECT r/s* [id number] Routin e Nuc Med 07/01/19 07:00 Completed CV echo complete* [id number] Routine Ultrasound 06/30/19 07:00 Completed Labs from last 24 hours 07/01/19 07/01/19 04:15 04:15 WBC 3.9 L RBC 4.08 L Hgb 11.9 Hct 36.9 L MCV 90.4 MCH 29.2 MCHC 32.2 RDW 12.8 Plt Count 190 MPV 10.1 Neut % (Auto) 44.8 Lymph % (Auto) 39.8 Conway % (Auto) 10.5 Eos % (Auto) 4.3 Baso % (Auto) 0.3 Neut # (Auto) 1.8 Lymph # (Auto) 1.6 [place] # (Auto) 0.4 Eos # (Auto) 0.2 Baso # (Auto) 0.0 Nucleated RBC % (a uto) 0 Nucleated RBCs # 0.0 Sodium 142 Potassium 4.2 Chloride 107 Carbon Dioxide 26 Anion Gap 13.2 BUN 11 Creatinine 0.9 Glucose 110 Calculated Osmolal ity 291 Calcium 9.2 Vitals: Last Vital Signs Temp 98.1 F 07/01/19 11:18 Pulse 63 07/01/19 11:18 Resp 18 07/01/19 11:18 BP 154/67 07/01/19 11:18 Pulse Ox 96 07/01/19 11:18 Discharge Plan Discharge Patient Disposition: Home, Self-Care Condition: Stable Prescriptions: New Eliquis 5 mg Tablet 5 mg PO BID Qty: 60 RF: 0 amlodipine 5 mg Tablet 5 mg PO DAILY Qty: 30 RF: 0 losartan 50 mg Tablet 50 mg PO BID Qty: 60 RF: 0 metoprolol tartrate 25 mg Tablet 25 mg PO BID Qty: 60 RF: 0 Continued fluticasone propion-salmeterol [Advair Diskus] 250-50 mcg/dose blister with device 1 inh INHALATION Q12H RF: 0 albuterol sulfate [ProAir HFA] 90 mcg/actuation HFA aerosol inhaler 2 puff INHALATION QID RF: 0 cholecalciferol (vitamin D3) 4,000 unit capsule 4,000 unit PO .1ST AND 15TH RF: 0 tizanidine 4 mg capsule 4 mg PO TID PRN (Reason: muscle spasticity) Qty: 60 RF: 0 levothyroxine 88 mcg tablet 88 mcg PO DAILY Qty: 90 RF: 0 Prilosec OTC 20 mg Tablet,Delayed Release (Dr/Ec) 20 mg PO DAILY RF: 0 Discontinued celecoxib [Celebrex] 200 mg capsule 200 mg PO BID Qty: 60 RF: 1 losartan 50 mg Tablet 50 mg PO DAILY RF: 0 atenolol 25 mg Tablet 25 mg PO DAILY RF: 0 hydrochlorothiazide 25 mg Tablet 25 mg PO DAILY PRN (Reason: Hypertension) RF: 0 potassium gluconate 500 mg (83 mg) Tablet 500 mg PO DAILY RF: 0 Discharge Orders: Discharge Order (Routine); Ordered 07/01/19 Ordered By: Gabe Burger Referrals: Yu Mcnulty FNP-C [Primary Care Provider] - 4-7 days Lizz Case MD [Physician] - 2 weeks Discharge Diet: Cardiac Discharge Activity: Increase activity as tolerated Activity Restrictions/Additional Instructions: Take all medicine as prescribed Note that you are on an anticoagulant. 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
== END 2019-07-01 15:20 | disposition home or self-care (01) ==
LOC: ER 01:59 → MEDSURG 07:00
PROVIDERS: Admitting Provider Internal Medicine; Emergency Provider Emergency Medicine; Family Provider Nurse Practitioner; PCP Nurse Practitioner; Visit Provider Internal Medicine
DX: I10 Essential (primary) hypertension (principal); E03.9 Hypothyroidism, unspecified; I48.91 Unspecified atrial fibrillation; M62.838 Other muscle spasm; M54.2 Cervicalgia; Z79.01 Long term (current) use of anticoagulants; Z91.81 History of falling; M19.90 Unspecified osteoarthritis, unspecified site; J45.909 Unspecified asthma, uncomplicated; R07.89 Other chest pain
CPT/HCPCS: 12345; 36415; 70450; 71045; 78452; 80048; 80053; 83735; 84443; 84484; 85025; 93005; 93017; 93306; 96374; 99282; 99285; A9500; G0378; J2785; J3490

== ENCOUNTER → 2020-01-03 15:00 | Outpatient (BNVA) | payer MEDICARE, OTHER, SELFPAY | PROVIDERS: Family Provider Nurse Practitioner; PCP Nurse Practitioner; Visit Provider Nurse Practitioner | DX: E03.9 Hypothyroidism, unspecified (principal); I10 Essential (primary) hypertension | CPT/HCPCS: 80053; 84443 ==

== ENCOUNTER → 2020-08-03 15:09 | Outpatient (BNVA) | payer MEDICARE, OTHER, SELFPAY | PROVIDERS: Family Provider Nurse Practitioner; PCP Nurse Practitioner; Visit Provider Nurse Practitioner | DX: E03.9 Hypothyroidism, unspecified (principal); I10 Essential (primary) hypertension; R73.9 Hyperglycemia, unspecified; E55.9 Vitamin D deficiency, unspecified; J44.9 Chronic obstructive pulmonary disease, unspecified; M19.90 Unspecified osteoarthritis, unspecified site | CPT/HCPCS: 80053; 80061; 82306; 83036; 84443; 85025; 85651; 86140 ==

== ENCOUNTER → 2021-01-26 09:22 | Outpatient (BNVA) | payer MEDICARE, OTHER, SELFPAY | PROVIDERS: Family Provider Nurse Practitioner; PCP Nurse Practitioner; Visit Provider Nurse Practitioner | DX: E78.2 Mixed hyperlipidemia (principal); E03.9 Hypothyroidism, unspecified; I10 Essential (primary) hypertension | CPT/HCPCS: 80053; 80061; 84443; 85025 ==

== ENCOUNTER 2021-04-04 13:08 | Outpatient (RCR) | payer MEDICARE, OTHER, SELFPAY | END 2021-04-23 23:59 | disposition home or self-care (01) | LOC: SPT 13:08 | PROVIDERS: PCP Nurse Practitioner; Visit Provider Orthopaedic Surgery | DX: M17.11 Unilateral primary osteoarthritis, right knee (principal) | CPT/HCPCS: 97032; 97110; 97116; 97161 ==

== ENCOUNTER 2021-04-24 06:00 | Outpatient (RCR) | payer MEDICARE, OTHER, SELFPAY | END 2021-05-21 23:59 | disposition home or self-care (01) | LOC: SPT 06:00 | PROVIDERS: PCP Nurse Practitioner; Visit Provider Orthopaedic Surgery | DX: M17.11 Unilateral primary osteoarthritis, right knee (principal) | CPT/HCPCS: 97110; 97164 ==

== ENCOUNTER 2021-05-22 06:00 | Outpatient (RCR) | payer MEDICARE, OTHER, SELFPAY | END 2021-05-31 23:59 | disposition home or self-care (01) | LOC: SPT 06:00 | PROVIDERS: PCP Nurse Practitioner; Visit Provider Orthopaedic Surgery | DX: M17.11 Unilateral primary osteoarthritis, right knee (principal) | CPT/HCPCS: 97110 ==

== ENCOUNTER → 2021-06-14 13:36 | Outpatient (BNVA) | payer MEDICARE, OTHER, SELFPAY | PROVIDERS: PCP Nurse Practitioner; Visit Provider Internal Medicine Cardiovascular Disease | DX: J44.9 Chronic obstructive pulmonary disease, unspecified (principal); I48.91 Unspecified atrial fibrillation; I10 Essential (primary) hypertension | CPT/HCPCS: 99214 ==

== ENCOUNTER → 2021-07-23 08:56 | Outpatient (BNVA) | payer MEDICARE, OTHER, SELFPAY | PROVIDERS: PCP Nurse Practitioner; Visit Provider Nurse Practitioner | DX: M54.12 Radiculopathy, cervical region (principal); E03.9 Hypothyroidism, unspecified; I10 Essential (primary) hypertension; E55.9 Vitamin D deficiency, unspecified; M19.90 Unspecified osteoarthritis, unspecified site | CPT/HCPCS: 80053; 80061; 82306; 84443; 85025; 85651; 86140 ==

== ENCOUNTER → 2021-08-22 08:50 | Outpatient (BNVA) | payer MEDICARE, OTHER, SELFPAY | PROVIDERS: PCP Nurse Practitioner; Visit Provider Nurse Practitioner | DX: M54.12 Radiculopathy, cervical region (principal) | CPT/HCPCS: 72040 ==

== ENCOUNTER 2022-01-18 06:00 | Outpatient (RCR) | payer MEDICARE, OTHER, SELFPAY | END 2022-01-21 23:59 | disposition home or self-care (01) | LOC: TPT 06:00 | PROVIDERS: PCP Nurse Practitioner; Visit Provider Physician Assistant | DX: Z96.651 Presence of right artificial knee joint (principal) | CPT/HCPCS: 97110; 97162 ==

== ENCOUNTER 2022-01-22 06:00 | Outpatient (RCR) | payer MEDICARE, OTHER, SELFPAY | END 2022-02-20 23:59 | disposition home or self-care (01) | LOC: TPT 06:00 | PROVIDERS: PCP Nurse Practitioner; Visit Provider Physician Assistant | DX: Z96.651 Presence of right artificial knee joint (principal) | CPT/HCPCS: 97110; 97140 ==

== ENCOUNTER 2022-02-21 06:00 | Outpatient (RCR) | payer MEDICARE, OTHER, SELFPAY | END 2022-02-27 13:55 | disposition home or self-care (01) | LOC: TPT 06:00 | PROVIDERS: PCP Nurse Practitioner; Visit Provider Physician Assistant | DX: Z96.651 Presence of right artificial knee joint (principal) | CPT/HCPCS: 97110 ==

== ENCOUNTER → 2022-07-15 10:18 | Outpatient (BNVA) | payer MEDICARE, SELFPAY | PROVIDERS: PCP Nurse Practitioner Family; Visit Provider Internal Medicine Rheumatology | DX: R76.8 Other specified abnormal immunological findings in serum (principal); Z79.899 Other long term (current) drug therapy; M15.4 Erosive (osteo)arthritis; M54.12 Radiculopathy, cervical region | CPT/HCPCS: 36415; 72040; 73130; 86235; 99204 ==

== ENCOUNTER 2023-01-14 11:35 | Outpatient (CLI) | payer OTHER, SELFPAY | END 2023-01-14 11:36 | disposition home or self-care (01) | PROVIDERS: PCP Nurse Practitioner Family; Visit Provider Nurse Practitioner Family | DX: M47.816 Spondylosis without myelopathy or radiculopathy, lumbar region (principal); M51.37 Other intervertebral disc degeneration, lumbosacral region; M85.88 Other specified disorders of bone density and structure, other site; M25.552 Pain in left hip; R76.8 Other specified abnormal immunological findings in serum; M15.4 Erosive (osteo)arthritis | CPT/HCPCS: 36415; 72120; 73502; 80076; 82565; 85025; 86140 ==

== ENCOUNTER → 2023-02-18 11:15 | Outpatient (BNVA) | payer OTHER, SELFPAY | PROVIDERS: PCP Nurse Practitioner Family; Referring Provider Nurse Practitioner Family; Visit Provider Orthopaedic Surgery | DX: M43.12 Spondylolisthesis, cervical region (principal); M50.322 Other cervical disc degeneration at C5-C6 level; M50.321 Other cervical disc degeneration at C4-C5 level | CPT/HCPCS: 72050 ==

== ENCOUNTER 2023-03-10 06:00 | Outpatient (RCR) | payer MEDICARE, SELFPAY | END 2023-03-23 23:59 | disposition home or self-care (01) | LOC: TPT 06:00 | PROVIDERS: Visit Provider Orthopaedic Surgery | DX: M54.12 Radiculopathy, cervical region (principal) | CPT/HCPCS: 97110; 97140; 97162 ==

== ENCOUNTER 2023-03-24 06:00 | Outpatient (RCR) | payer MEDICARE, SELFPAY | END 2023-04-18 23:59 | disposition home or self-care (01) | LOC: TPT 06:00 | PROVIDERS: Visit Provider Orthopaedic Surgery | DX: M54.12 Radiculopathy, cervical region (principal) | CPT/HCPCS: 97110 ==

== ENCOUNTER → 2023-04-22 09:36 | Outpatient (BNVA) | payer MEDICARE, SELFPAY | PROVIDERS: PCP Nurse Practitioner Family; Visit Provider Orthopaedic Surgery | DX: M54.12 Radiculopathy, cervical region (principal) | CPT/HCPCS: 99213 ==

== ENCOUNTER 2023-06-08 08:34 | Emergency (ER) | payer MEDICARE, SELFPAY ==
[2023-06-08 08:40] VITALS: BP 147/68; PULSE 80; RESP 16; TEMP 36.5; O2SAT 95; BMI 25.7
[2023-06-08 08:45] VITALS: BP 115/44; PULSE 69; O2SAT 96
--- NOTE | 2023-06-08 08:50 | ED_ITS ---
HPI - Animal Bite General: Chief Complaint: Animal Bite Stated Complaint: right arm pain, redness, warm Time Seen by Provider: 06/08/23 08:43 History of Present Illness: 82-year-old female with a history of hyp ertension and atrial fibrillation on Eliquis who presents to the emergency room with cellulitis secondary to a cat scratch. She is scratched a couple days ago and now the skin on her right forearm is red and hot and tender. No systemic fevers. No altered mental status. No cough. No chest pain. No shortness of breath. No abdominal pain. No nausea or vomiting. Review of Systems Narrative: Constitutional symptoms: Negative except as documented in HPI. Skin symptoms: Negative except as documented in HPI. Eye symptoms: Negative except as documented in HPI. ENMT symptoms: Negative except as documented in HPI. Respiratory symptoms: Negative except as documented in HPI. Cardiovascular symptoms: Negative except as documented in HPI. Gastrointestinal symptoms: Negative except as documented in HPI. Genitourinary symptoms: Negative except as documented in HPI. Musculoskeletal symptoms: Negative except as documented in HPI. Neurologic symptoms: Negative except as documented in HPI. Psychiatric symptoms: Negative except as documented in HPI. Endocrine symptoms: Negative except as documented in HPI. PFSH ED PFSH: Medical History DJD (degenerative joint disease) of cervical spine Cervical radiculopathy Erosive osteoarthritis of both hands Positive CAROLINE (antinuclear antibody) GERD (gastroesophageal reflux disease) Inguinal hernia bilateral, non-recurrent Asthma Arthritis Hypertension Hypothyroidism Vitamin D deficiency Surgical History History of bilateral knee replacement History of appendectomy History of cholecystectomy History of hysterectomy Family History Daughter Lupus Mother Bleeding disorder Mother at age 43 because of intracranial bleed Other Cancer Chronic kidney disease (CKD) Diabetes Hypertension Lung disease Rheumatoid arthritis Stroke Denies family history of CAD (coronary artery disease) Hyperlipidemia Social History Smoking and tobacco/nicotine status: never used tobacco/nicotine Second hand smoke exposure: No Alcohol intake: never Substance/Drug Use: never Adopted: No Caregiver/support person: No Lives independently: Yes Household members: spouse Housing: House Marital status: service: No Current occupational status: employed Current occupation: [employer] Do you think of yourself as: Straight/Heterosexual Current gender identity: Female Course Vital Signs: Vital signs: Vital Signs Temperature 97.7 F 06/08/23 08:40 Pulse Rate 69 06/08/23 08:45 Respiratory Rate 16 06/08/23 08:40 Blood Pressure 115/44 06/08/23 08:45 Pulse Oximetry 96 06/08/23 08:45 Oxygen Delivery Me thod Room Air 06/08/23 08:45 MDM - Animal Bite Medical Decision Making Cellulitis secondary to cat bite. Patient states no allergies so I will place her on Augmentin. No radiology studies performed this visit Other Data - Discharged home - Discussed plan with patient. Answered any questions. - Evaluation and treatment of this problem were appropriate in the emergency setting. Discharge Plan Discharge Patient Disposition: Home Clinical Impression: Cat bite, Cellulitis Condition: Stable Prescriptions: New amoxicillin-pot clavulanate 875-125 mg tablet 1 tab PO BID 10 Days Qty: 20 0RF No Action albuterol sulfate [ProAir HFA] 90 mcg/actuation HFA aerosol inhaler 2 puff INHALATION QID PRN diclofenac sodium 1 % gel 2 g topical QID Qty: 100 2RF Rx Instructions: apply to affected area as needed hydroxychloroquine 200 mg tablet 200 mg PO BID Qty: 180 1RF acetaminophen 325 mg tablet 325 mg PO QID PRN metoprolol tartrate 25 mg tablet 75 mg PO DIRECTED Rx Instructions: 25 mg in the AM 25 mg in the PM prednisone 20 mg tablet 20 mg PO DAILY Qty: 15 0RF Rx Instructions: 60MG X 3 Days 40MG X 2 Days 20MG X 2 Days albuterol sulfate 2.5 mg /3 mL (0.083 %) solution for nebulization 2.5 mg INHALATION Q4H PRN (Reason: shortness of breath or wheezing) Qty: 75 5RF levothyroxine 88 mcg tablet 88 mcg PO DAILY Qty: 30 5RF Eliquis 5 mg tablet 5 mg PO BID Qty: 60 0RF losartan 50 mg tablet 50 mg PO BID Qty: 180 3RF amlodipine 5 mg tablet 5 mg PO DAILY Qty: 90 3RF Prilosec OTC 20 mg Tablet,Delayed Release (Dr/Ec) 20 mg PO DAILY Discharge Orders: Discharge ED (Routine); Ordered 06/08/23 Ordered By: Jonelle Lopez Referrals: Layla Busby FNP [Primary Care Provider] - (You have been screened and evaluated and felt safe for discharge. Health conditions do change or evolve sometimes and as such it is important that you follow up with your Primary Doctor to be re checked, 3-5 days is a general good time frame for follow up. You are always welcome to return to the ED for re assessment if your symptoms are worsening or you have new concerns) Discharge Diet: Usual diet Discharge Activity: Resume usual activity Patient Instructions: Animal Bite (ED), Cellulitis (ED) Coding Level of Care Code ED P[place] Sawyer for Noris Jones
[2023-06-08 09:03] VITALS: BP 120/50; PULSE 74; O2SAT 96
== END 2023-06-08 09:05 | disposition home or self-care (01) ==
PROVIDERS: Emergency Provider Emergency Medicine; PCP Nurse Practitioner Family
DX: L03.113 Cellulitis of right upper limb (principal); W55.01XA Bitten by cat, initial encounter; I10 Essential (primary) hypertension; Z79.01 Long term (current) use of anticoagulants
CPT/HCPCS: 99283

== ENCOUNTER → 2023-07-30 09:31 | Outpatient (BNVA) | payer MEDICARE, SELFPAY | PROVIDERS: PCP Nurse Practitioner Family; Visit Provider Nurse Practitioner Family | DX: I10 Essential (primary) hypertension (principal); Z79.01 Long term (current) use of anticoagulants; I48.0 Paroxysmal atrial fibrillation | CPT/HCPCS: 99214 ==

== ENCOUNTER 2023-09-03 09:04 | Outpatient (CLI) | payer MEDICARE, SELFPAY ==
--- NOTE | 2023-09-03 09:05 | MR_ITS ---
WS: [id number] MRI CERVICAL SPINE NONCONTRAST HISTORY: CHRONIC NECK PAIN COMPARISON: Cervical spine radiograph 02/18/2023 Technique: Multiplanar, multisequence noncontrast imaging of the cervical spine. Slight increase in the cervical lordosis. Disc spaces are moderately narrowed and desiccated with dis c bulging and osteophytosis. Signal within the cervical cord is normal. Visualized posterior fossa is unremarkable. Craniocervical junction is normal. There is increased soft tissue surrounding odontoid process. This may be secondary to rheumatoid or osteoarthritis. C2-C3: Central disc protrusion. No stenosis. C3-C4: Shallow central disc protrusion and mild facet arthritis. Mild foraminal stenosis. C4-C5: Osteophytic ridging with a central disc protrusion and facet arthritis. Mild central and bilat eral foraminal stenosis. C5-C6: Osteophytic ridging and disc bulging with facet arthritis. Moderate central and bilateral fora zhane stenosis. C6-C7: Moderate LEFT paracentral disc protrusion contacting and displacing the LEFT lateral thecal sa c. Mild LEFT foraminal stenosis. C7-T1: Mild LEFT foraminal stenosis. There is mild facet joint synovitis on the LEFT at C4-5 and C5-6. MR/MR cervical spin wo con* [id number] IMPRESSION: 1. Moderate spondylosis throughout the cervical spine. 2. C5-6: Moderate central and bilateral foraminal stenosis due to osteophyte a nd disc disease. 3. C6-7: Moderate size LEFT paracentral disc protrusion contacting the LEFT la teral thecal sac and cervical cord. Mild LEFT foraminal stenosis. 4. Small central disc protrusion at C2-3 and C3-4. 5. C4-5: Mild central and bilateral foraminal stenosis. 6. Mild facet joint synovitis on the LEFT at C4-5 and C5-6.
--- NOTE | 2023-09-03 09:05 | MR_ITS ---
WS: [id number] MRI BRAIN WITHOUT CONTRAST HISTORY: LOSS OF BALANCE/VISION CHANGES/HEADACHES/CHRONIC NECK PAIN COMPARISON: CT head 06/30/2019 TECHNIQUE: Diffusion imaging, multiplanar T1, T2 and FLAIR imaging obtained. No evidence for acute infarct or hemorrhage. [place]-white matter differentiation is normal. Prominent p erivascular space inferior LEFT basal ganglia. Mild atrophy and mild small vessel ischemic disease. No prior infarct. Minimal hippocampal atrophy. Ventricles and extra-axial spaces are normal. No inferior displacement of cerebellar tonsils. The sella turcica and pituitary gland are unremarkabl e. Increased soft tissue surround the odontoid process. This can be seen with rheumatoid arthritis. Dural venous sinuses and yurok of [place] demonstrate no abnormality on this unenhanced studies. Paranasal sinuses: Small air-fluid level in the LEFT maxillary sinus. Otherwise sinuses are clear. Mastoid air cells: Normal. Calvarium and scalp: Intact. MR/MR head wo con* [id number] IMPRESSION: 1. No acute infarct. 2. Mild atrophy and mild small vessel ischemic disease. 3. Very mild hippocampal atrophy. 4. Small air-fluid level LEFT maxillary sinus.
== END 2023-09-03 09:05 | disposition home or self-care (01) ==
PROVIDERS: PCP Nurse Practitioner Family; Visit Provider Nurse Practitioner Family
DX: R26.89 Other abnormalities of gait and mobility (principal); H53.9 Unspecified visual disturbance; R51.9 Headache, unspecified; M54.2 Cervicalgia; G31.9 Degenerative disease of nervous system, unspecified; G31.89 Other specified degenerative diseases of nervous system; I67.82 Cerebral ischemia; J34.89 Other specified disorders of nose and nasal sinuses
CPT/HCPCS: 70551; 72141

== ENCOUNTER → 2023-09-16 14:36 | Outpatient (BNVA) | payer MEDICARE, SELFPAY | PROVIDERS: PCP Nurse Practitioner Family; Visit Provider Orthopaedic Surgery | DX: M54.12 Radiculopathy, cervical region (principal) | CPT/HCPCS: 72050; 99214 ==

== ENCOUNTER 2023-10-02 06:00 | Outpatient (RCR) | payer MEDICARE, SELFPAY | END 2023-10-22 23:59 | disposition home or self-care (01) | LOC: TPT 06:00 | PROVIDERS: PCP Nurse Practitioner Family; Visit Provider Nurse Practitioner Family | DX: R26.89 Other abnormalities of gait and mobility (principal) | CPT/HCPCS: 97110; 97140; 97162 ==

== ENCOUNTER 2023-10-23 06:00 | Outpatient (RCR) | payer MEDICARE, SELFPAY | END 2023-11-22 23:59 | disposition home or self-care (01) | LOC: TPT 06:00 | PROVIDERS: PCP Nurse Practitioner Family; Visit Provider Nurse Practitioner Family | DX: R26.89 Other abnormalities of gait and mobility (principal) | CPT/HCPCS: 97110 ==

== ENCOUNTER 2024-07-19 09:59 | Outpatient (CLI) | payer MEDICARE, SELFPAY ==
--- NOTE | 2024-07-19 10:08 | XRR_ITS ---
PROCEDURE INFORMATION: Exam: XR Left Hip Exam date and time: 07/19/2024 10:24 AM Age: 83 years old Clinical indication: Hip pain; Left hip; Additional info: Left hip joint pain TECHNIQUE: Imaging protocol: Radiologic exam of the left hip. Views: 2 or 3 views hip with pelvis when performed. COMPARISON: CR XR hip LT 2-3V wo/w pel* [id number] 01/14/2023 11:54 AM FINDINGS: Bones/joints: Mild degenerative changes left hip joint consisting of mild joint space narrowing and subchondral sclerosis. No fracture or malalignment. Moderate degenerative changes at pubic symphysis both noted. Soft tissues: Unremarkable. XR/XR hip LT 2-3V wo/w pel* [id number] IMPRESSION: Mild degenerative changes left hip joint. No acute bony abnormalities.
--- NOTE | 2024-07-19 10:08 | XRR_ITS ---
PROCEDURE INFORMATION: Exam: XR Lumbosacral Spine Exam date and time: 07/19/2024 10:24 AM Age: 83 years old Clinical indication: Low back pain TECHNIQUE: Imaging protocol: Radiologic exam of the lumbosacral spine. Views: 2 or 3 views. COMPARISON: CR XR lumbar spine f/e only [id number] 01/14/2023 11:54 AM FINDINGS: Bones/joints: Bones are demineralized. There is mild scoliosis convex to the patient's right. Moderate degenerative changes L1-L2 with endplate sclerosis and osteophytic lipping. Mild degenerative changes lower lumbar spine with accompanying facet arthrosis. There are no compression fractures or spondylolisthesis. Pedicles are intact. Soft tissues: Unremarkable. Vasculature: Abdominal aorta is diffusely calcified.. XR/XR lumbar spine 2-3V* [id number] IMPRESSION: Moderate degenerative changes most pronounced at L1-L2. No acute bony abnormalities.
== END 2024-07-19 10:00 | disposition home or self-care (01) ==
PROVIDERS: PCP Family Medicine; Visit Provider Family Medicine
DX: M16.12 Unilateral primary osteoarthritis, left hip (principal); M19.09 Primary osteoarthritis, other specified site; M85.88 Other specified disorders of bone density and structure, other site; M41.86 Other forms of scoliosis, lumbar region; M47.896 Other spondylosis, lumbar region; I70.0 Atherosclerosis of aorta
CPT/HCPCS: 72100; 73502

== ENCOUNTER → 2024-07-29 12:19 | Outpatient (BNVA) | payer MEDICARE, SELFPAY | PROVIDERS: PCP Family Medicine; Visit Provider Internal Medicine | DX: I48.91 Unspecified atrial fibrillation (principal); I10 Essential (primary) hypertension; E03.9 Hypothyroidism, unspecified; J44.9 Chronic obstructive pulmonary disease, unspecified; Z79.01 Long term (current) use of anticoagulants | CPT/HCPCS: 99214 ==

== ENCOUNTER 2024-09-03 14:46 | Outpatient (CLI) | payer MEDICARE, SELFPAY | END 2024-09-03 14:47 | disposition home or self-care (01) | LOC: RAD 14:48 | PROVIDERS: PCP Family Medicine; Visit Provider Internal Medicine | DX: I34.0 Nonrheumatic mitral (valve) insufficiency (principal) | CPT/HCPCS: 93306 ==